=== PATIENT | male | born 1965 | race Caucasian/White ===

== ENCOUNTER 2017-05-04 09:57 | Day surgery (SDC) | payer OTHER ==
[~2017-05-04] VITALS: Ht 170.2 cm; Wt 61.0 kg
[~2017-05-04 09:57] MED LIST: ASPIR-TRIN325 M1 PO; CHANTIX0.5 MG PO; COMBIVENT200 INHALA IH; GABAPENTIN800 MG PO; IMDUR60 MG PO; NOHOMEMEDS; PROAIR HFA8.5 GM IH; SOMA350 MG PO; Zocor PO
[2017-05-04] MEDS ORDERED: SUBOXONE 8 MG-1 EAC2 PO (11:45)
== END 2017-05-04 16:30 | disposition home or self-care (01) ==
LOC: CATH 09:57
DX: I25.10 Atherosclerotic heart disease of native coronary artery without angina pectoris (principal); E78.5 Hyperlipidemia, unspecified
CPT/HCPCS: C1769; C1887; J1200; J1644; J2250; J3010